=== PATIENT | female | born 1940 | race Caucasian/White ===

== ENCOUNTER 2019-06-02 14:01 | Inpatient (IN) | payer OTHER, MEDICARE ==
[~2019-06-02] VITALS: Ht 167.6 cm; Wt 118.0 kg
--- NOTE | 2019-06-02 14:21 | NUR ---
Bib by [facility] after home health nurse found patient lying in pool of urine in poorly kept house. Home health nurse requesting EPS case be filed as patient with known UTI by family did not fill rx ordered 30 days ago. EMS report fopul urine smell and patient unable to stand and A+Ox2-3. However afebrile, fsbs "fine" & vss. EMS started piv and started patient on 1L NS on slow bolus
[2019-06-02] MEDS ORDERED: SODIUM CHLORIDE FLUSH 10ML SYR IVF ONE (15:00)
[2019-06-02 15:10] LABS: BASOPHILS # (AUTO) 0.04 x10^3/uL (0-0.1); BASOPHILS % (AUTO) 0 % (0-1); EOSINOPHILS # (AUTO) 0.14 x10^3/uL (0-0.4); EOSINOPHILS % (AUTO) 1 % (1-7); LYMPHOCYTES # (AUTO) 2.44 x10^3/uL (1-3.4); LYMPHOCYTES % (AUTO) 20 % (22-44); MD NO; MEAN CORPUSCULAR HEMOGLOBIN 30.4 pg (27.0-34.8); MEAN CORPUSCULAR HGB CONC 32.1 g/dL (32.4-35.8); MEAN CORPUSCULAR VOLUME 94.6 fL (80-100); MEAN PLATELET VOLUME 10.1 fL (7.4-10.4); MONOCYTES # (AUTO) 0.79 x10^3/uL (0.2-0.8); MONOCYTES % (AUTO) 7 % (2-9); NEUTROPHILS # (AUTO) 8.81 x10^3/uL (1.8-6.8); NEUTROPHILS % (AUTO) 72 % (42-75); PLATELET COUNT 179 x10^3/uL (130-400); RED BLOOD COUNT 5.65 x10^6/uL (3.82-5.3); RED CELL DISTRIBUTION WIDTH 14.1 % (9.6-15.2)
[2019-06-02 15:20] LABS: ALANINE AMINOTRANSFERASE 18 U/L (12-78); ALBUMIN 2.9 g/dL (3.4-5.0); ANION GAP 7 mmol/L (5-15); CALCIUM 9.4 mg/dL (8.5-10.1); CHLORIDE 112 mmol/L (98-107); CREATININE 1.47 mg/dL (0.55-1.02)
[2019-06-02 15:23] LABS: ALKALINE PHOSPHATASE 171 U/L (45-117); BILIRUBIN,TOTAL 0.7 mg/dL (0.2-1.0)
[2019-06-02 15:50] LABS: MICROSCOPIC AUTO
[2019-06-02 15:54] LABS: CULTURE INDICATED? YES
[2019-06-02] MEDS ORDERED: CEFTRIAXONE PMX 1GM/50ML 50 ML ONE (16:15)
--- NOTE | 2019-06-02 16:24 | NUR ---
TASK RN: IV ANTIBIOTICS STARTED AND INFUSING W/O DIFFICULTYL. WARM BLANKET PROVIDED, CALL LIGHT W/I REACH.
[2019-06-02] MEDS ORDERED: CEFTRIAXONE PMX 1GM/50ML 50 ML IVPB ONE (16:30)
[2019-06-02] MEDS ORDERED: SODIUM CHLORIDE FLUSH 10ML SYR IVF PRN (16:30)
--- NOTE | 2019-06-02 16:45 | NUR ---
1l ns bolus started by EMS completed
--- NOTE | 2019-06-02 17:20 | NUR ---
Unable to complete med recc as patient unaware of meds/no family at bedside. Will attempt to contact family to weither obtain med info or pharmacy they use Adrianne SW also contacted about pending EPS report. Adrianne reports she has contacted home health RN who will be completing report
[2019-06-02] MEDS ORDERED: ACETAMINOPHEN 325 MG TABLET PO PRN (17:30)
[2019-06-02] MEDS ORDERED: BISACODYL 10 MG SUPP PR PRN (17:30)
--- NOTE | 2019-06-02 17:40 | NUR ---
b/p noted to be elevated. Lev WANG at bedside- to order prns
[2019-06-02 17:59] VITALS: BP 174/78
[2019-06-02] MEDS: SODIUM CHLORIDE 0.9% 1,000 ML IV SCH (18:16)
[2019-06-02] MEDS: HEPARIN 5,000 UNITS/ML, 1ML SQ SCH (18:16)
[2019-06-02] MEDS: hydrALAzine 20 MG/ML, 1ML IVPush PRN (18:16)
[2019-06-02 18:53] VITALS: BP 172/81
[2019-06-02] MEDS: ONDANSETRON ODT 4 MG PO PRN (19:00)
[2019-06-03 01:18] VITALS: BP 158/89
[2019-06-03] MEDS: HEPARIN 5,000 UNITS/ML, 1ML SQ SCH ×3 (02:27→17:20)
[2019-06-03] MEDS: SODIUM CHLORIDE 0.9% 1,000 ML IV SCH ×2 (04:34→17:20)
[2019-06-03 06:19] LABS: BASOPHILS # (AUTO) 0.06 x10^3/uL (0-0.1); BASOPHILS % (AUTO) 0 % (0-1); EOSINOPHILS # (AUTO) 0.01 x10^3/uL (0-0.4); EOSINOPHILS % (AUTO) 0 % (1-7); LYMPHOCYTES # (AUTO) 2.39 x10^3/uL (1-3.4); LYMPHOCYTES % (AUTO) 18 % (22-44); MD NO; MEAN CORPUSCULAR HEMOGLOBIN 30.2 pg (27.0-34.8); MEAN CORPUSCULAR HGB CONC 32.4 g/dL (32.4-35.8); MEAN CORPUSCULAR VOLUME 93.2 fL (80-100); MEAN PLATELET VOLUME 9.8 fL (7.4-10.4); MONOCYTES # (AUTO) 0.85 x10^3/uL (0.2-0.8); MONOCYTES % (AUTO) 6 % (2-9); NEUTROPHILS % (AUTO) 75 % (42-75); PLATELET COUNT 192 x10^3/uL (130-400); RED BLOOD COUNT 5.58 x10^6/uL (3.82-5.3)
[2019-06-03 06:29] LABS: ALBUMIN 3.1 g/dL (3.4-5.0); ANION GAP 8 mmol/L (5-15); CALCIUM 9.6 mg/dL (8.5-10.1); CHLORIDE 110 mmol/L (98-107)
[2019-06-03 06:32] LABS: ALANINE AMINOTRANSFERASE 24 U/L (12-78); ALKALINE PHOSPHATASE 179 U/L (45-117); BILIRUBIN,TOTAL 0.6 mg/dL (0.2-1.0); CREATININE 1.47 mg/dL (0.55-1.02); TOTAL PROTEIN 7.1 g/dL (6.4-8.2)
[2019-06-03 08:30] VITALS: BP 145/79
[2019-06-03] MEDS: SENNA/DOCUSATE TABLET PO SCH (09:43)
[2019-06-03] MEDS ORDERED: INSTRUCTION SEE COMMENTS XX PRN (10:30)
[2019-06-03] MEDS ORDERED: PHARMACY INSTRUCTION MC PRN (10:30)
[2019-06-03] MEDS ORDERED: DEXTROSE 50%, 50ML SYRINGE IVPush PRN (12:00)
[2019-06-03] MEDS ORDERED: GLUCAGON 1 MG IM PRN (12:00)
[2019-06-03] MEDS ORDERED: DEXTROSE 4 GM TAB.CHEW PO PRN (12:00)
[2019-06-03 14:13] VITALS: BP 149/81
--- NOTE | 2019-06-03 15:18 | NUR ---
REC CHOPPED/THIN; swallow precautions sheet posted at beside Addendum: 06/03/19 at [address] Amended: Links added.
[2019-06-03] MEDS ORDERED: HYDR-3341 PO (15:35)
[2019-06-03] MEDS ORDERED: MIRT15TA94 PO (15:35)
[2019-06-03] MEDS ORDERED: INSU100C5 SQ-INSULIN (15:35)
[2019-06-03] MEDS ORDERED: INSU100V8 SQ (15:35)
[2019-06-03] MEDS ORDERED: ATOR40TA78 PO (15:35)
[2019-06-03] MEDS ORDERED: ISOS30TA8 PO (15:35)
[2019-06-03] MEDS ORDERED: CARV3.122 PO (15:35)
[2019-06-03] MEDS ORDERED: GLIM4TAB4 PO (15:35)
[2019-06-03] MEDS ORDERED: AMIT25TA PO (15:35)
[2019-06-03] MEDS ORDERED: LEVO175T5 PO (15:35)
[2019-06-03] MEDS ORDERED: CHOL100015 PO (15:35)
[2019-06-03] MEDS: INSULIN LISPRO 100 UNITS/ML, PEN SQ-INSULIN SCH ×2 (16:00→21:00)
[2019-06-03] MEDS: CEFTRIAXONE PMX 1GM/50ML 50 ML IV SCH (17:19)
[2019-06-03 19:59] VITALS: BP 178/88
[2019-06-03 20:17] VITALS: BP 169/99
[2019-06-03] MEDS: hydrALAzine 20 MG/ML, 1ML IVPush PRN (20:20)
[2019-06-03 20:50] VITALS: BP 148/83
[2019-06-03] MEDS: SODIUM CHLORIDE FLUSH 10ML SYR IVF SCH (21:00)
[2019-06-03] MEDS: MELATONIN 3 MG TABLET PO SCH (21:00)
[2019-06-04 00:49] VITALS: BP 156/84
[2019-06-04] MEDS: HEPARIN 5,000 UNITS/ML, 1ML SQ SCH ×3 (01:30→16:40)
[2019-06-04] MEDS: SODIUM CHLORIDE 0.9% 1,000 ML IV SCH ×2 (04:47→14:32)
[2019-06-04] MEDS: INSULIN LISPRO 100 UNITS/ML, PEN SQ-INSULIN SCH ×4 (07:00→20:14)
[2019-06-04 07:12] LABS: BASOPHILS # (AUTO) 0.06 x10^3/uL (0-0.1); BASOPHILS % (AUTO) 1 % (0-1); EOSINOPHILS % (AUTO) 2 % (1-7); LYMPHOCYTES # (AUTO) 3.16 x10^3/uL (1-3.4); LYMPHOCYTES % (AUTO) 24 % (22-44); MD NO; MEAN CORPUSCULAR HEMOGLOBIN 30.6 pg (27.0-34.8); MEAN CORPUSCULAR HGB CONC 32.1 g/dL (32.4-35.8); MEAN CORPUSCULAR VOLUME 95.4 fL (80-100); MEAN PLATELET VOLUME 10.2 fL (7.4-10.4); MONOCYTES # (AUTO) 1.27 x10^3/uL (0.2-0.8); MONOCYTES % (AUTO) 10 % (2-9); NEUTROPHILS # (AUTO) 8.31 x10^3/uL (1.8-6.8); NEUTROPHILS % (AUTO) 64 % (42-75); PLATELET COUNT 179 x10^3/uL (130-400); RED BLOOD COUNT 5.31 x10^6/uL (3.82-5.3); RED CELL DISTRIBUTION WIDTH 14.1 % (9.6-15.2)
[2019-06-04 07:14] LABS: CHLORIDE 113 mmol/L (98-107)
[2019-06-04 07:21] LABS: ALANINE AMINOTRANSFERASE 24 U/L (12-78); ALBUMIN 2.8 g/dL (3.4-5.0); ALKALINE PHOSPHATASE 153 U/L (45-117); ANION GAP 9 mmol/L (5-15); BILIRUBIN,TOTAL 0.7 mg/dL (0.2-1.0); CALCIUM 9.5 mg/dL (8.5-10.1); CREATININE 1.36 mg/dL (0.55-1.02); TOTAL PROTEIN 6.4 g/dL (6.4-8.2)
[2019-06-04] MEDS: SODIUM CHLORIDE FLUSH 10ML SYR IVF SCH ×2 (08:12→20:14)
[2019-06-04] MEDS: SENNA/DOCUSATE TABLET PO SCH (08:13)
[2019-06-04 08:17] VITALS: BP 177/95
[2019-06-04] MEDS: hydrALAzine 20 MG/ML, 1ML IVPush PRN ×2 (09:11→18:10)
[2019-06-04 09:55] VITALS: BP 143/83
[2019-06-04 14:10] VITALS: BP 167/86
[2019-06-04] MEDS: CEFTRIAXONE PMX 1GM/50ML 50 ML IV SCH (16:40)
[2019-06-04 18:09] VITALS: BP 171/91
[2019-06-04] MEDS: QUETIAPINE 25MG TABLET PO PRN (18:11)
[2019-06-04 20:00] VITALS: BP 158/75
[2019-06-04] MEDS: MELATONIN 3 MG TABLET PO SCH (20:13)
[2019-06-05 00:06] VITALS: BP 155/85
[2019-06-05] MEDS: SODIUM CHLORIDE 0.9% 1,000 ML IV SCH ×3 (00:38→20:38)
[2019-06-05] MEDS: HEPARIN 5,000 UNITS/ML, 1ML SQ SCH ×3 (01:28→17:30)
[2019-06-05 06:01] LABS: BASOPHILS # (AUTO) 0.05 x10^3/uL (0-0.1); BASOPHILS % (AUTO) 0 % (0-1); EOSINOPHILS # (AUTO) 0.31 x10^3/uL (0-0.4); EOSINOPHILS % (AUTO) 2 % (1-7); LYMPHOCYTES # (AUTO) 2.89 x10^3/uL (1-3.4); LYMPHOCYTES % (AUTO) 23 % (22-44); MD NO; MEAN CORPUSCULAR HEMOGLOBIN 30.2 pg (27.0-34.8); MEAN CORPUSCULAR VOLUME 94.5 fL (80-100); MONOCYTES % (AUTO) 10 % (2-9); NEUTROPHILS # (AUTO) 8.24 x10^3/uL (1.8-6.8); NEUTROPHILS % (AUTO) 65 % (42-75); PLATELET COUNT 181 x10^3/uL (130-400); RED BLOOD COUNT 5.57 x10^6/uL (3.82-5.3); RED CELL DISTRIBUTION WIDTH 14.1 % (9.6-15.2)
[2019-06-05 06:03] LABS: ANION GAP 9 mmol/L (5-15); CALCIUM 9.6 mg/dL (8.5-10.1); CHLORIDE 111 mmol/L (98-107); CREATININE 1.33 mg/dL (0.55-1.02)
[2019-06-05] MEDS: INSULIN LISPRO 100 UNITS/ML, PEN SQ-INSULIN SCH ×4 (07:00→20:51)
[2019-06-05 08:00] VITALS: BP 154/78
[2019-06-05] MEDS: SENNA/DOCUSATE TABLET PO SCH (08:47)
[2019-06-05] MEDS: SODIUM CHLORIDE FLUSH 10ML SYR IVF SCH ×2 (08:51→20:32)
[2019-06-05 13:05] VITALS: BP 160/87
[2019-06-05] MEDS: CEFTRIAXONE PMX 1GM/50ML 50 ML IV SCH (16:44)
[2019-06-05 18:54] VITALS: BP 172/94
[2019-06-05] MEDS: MELATONIN 3 MG TABLET PO SCH (20:33)
[2019-06-05 23:56] VITALS: BP 174/97
[2019-06-06 00:05] VITALS: BP 167/87
[2019-06-06] MEDS: HEPARIN 5,000 UNITS/ML, 1ML SQ SCH ×4 (01:30→22:44)
[2019-06-06] MEDS: SODIUM CHLORIDE 0.9% 1,000 ML IV SCH ×2 (06:23→17:28)
[2019-06-06] MEDS: INSULIN LISPRO 100 UNITS/ML, PEN SQ-INSULIN SCH ×4 (07:00→22:36)
[2019-06-06] MEDS: SENNA/DOCUSATE TABLET PO SCH (07:55)
[2019-06-06 08:00] VITALS: BP 162/91
[2019-06-06] MEDS: SODIUM CHLORIDE FLUSH 10ML SYR IVF SCH ×2 (09:00→22:35)
[2019-06-06 10:14] LABS: BASOPHILS # (AUTO) 0.03 x10^3/uL (0-0.1); BASOPHILS % (AUTO) 0 % (0-1); EOSINOPHILS # (AUTO) 0.43 x10^3/uL (0-0.4); EOSINOPHILS % (AUTO) 4 % (1-7); LYMPHOCYTES # (AUTO) 2.38 x10^3/uL (1-3.4); LYMPHOCYTES % (AUTO) 22 % (22-44); MD NO; MEAN CORPUSCULAR HGB CONC 32.3 g/dL (32.4-35.8); MEAN PLATELET VOLUME 9.9 fL (7.4-10.4); MONOCYTES # (AUTO) 0.97 x10^3/uL (0.2-0.8); MONOCYTES % (AUTO) 9 % (2-9); NEUTROPHILS # (AUTO) 6.99 x10^3/uL (1.8-6.8); NEUTROPHILS % (AUTO) 65 % (42-75); PLATELET COUNT 178 x10^3/uL (130-400); RED BLOOD COUNT 5.53 x10^6/uL (3.82-5.3); RED CELL DISTRIBUTION WIDTH 14.2 % (9.6-15.2)
[2019-06-06 10:19] LABS: ANION GAP 6 mmol/L (5-15); CHLORIDE 112 mmol/L (98-107); CREATININE 1.17 mg/dL (0.55-1.02)
[2019-06-06 14:22] VITALS: BP 160/85
[2019-06-06] MEDS: CEFTRIAXONE PMX 1GM/50ML 50 ML IV SCH (17:28)
[2019-06-06] MEDS ORDERED: CEFD300C37 PO (18:32)
[2019-06-06 19:28] VITALS: BP 159/80
[2019-06-06] MEDS: CARVEDILOL 3.125 MG TABLET PO SCH (22:35)
[2019-06-06] MEDS: MIRTAZAPINE 15 MG TAB.RAPDIS PO SCH (22:35)
[2019-06-06] MEDS: ATORVASTATIN 40 MG TABLET PO SCH (22:35)
[2019-06-06] MEDS: MELATONIN 3 MG TABLET PO SCH (22:35)
[2019-06-06] MEDS: CEFDINIR 300 MG CAPSULE PO SCH (22:35)
[2019-06-06] MEDS: ISOSORBIDE MONONITRATE 20 MG TABLET PO SCH (22:36)
[2019-06-07 02:24] VITALS: BP 125/77
[2019-06-07] MEDS: LEVOTHYROXINE 175 MCG TABLET PO SCH (07:37)
[2019-06-07] MEDS: INSULIN LISPRO 100 UNITS/ML, PEN SQ-INSULIN SCH ×4 (07:37→20:15)
[2019-06-07] MEDS: CEFDINIR 300 MG CAPSULE PO SCH ×2 (07:37→20:09)
[2019-06-07] MEDS: SENNA/DOCUSATE TABLET PO SCH (07:37)
[2019-06-07] MEDS: ISOSORBIDE MONONITRATE 20 MG TABLET PO SCH ×2 (07:38→20:10)
[2019-06-07] MEDS: CARVEDILOL 3.125 MG TABLET PO SCH ×2 (07:38→20:12)
[2019-06-07] MEDS: SODIUM CHLORIDE FLUSH 10ML SYR IVF SCH ×2 (07:44→20:16)
[2019-06-07 07:47] VITALS: BP 177/98
[2019-06-07 09:21] VITALS: BP 160/85
[2019-06-07 10:45] LABS: FIO2 ROOM AIR %
[2019-06-07] MEDS: HEPARIN 5,000 UNITS/ML, 1ML SQ SCH ×2 (13:04→21:07)
[2019-06-07 16:00] VITALS: BP 180/86
[2019-06-07 19:16] VITALS: BP 182/85
[2019-06-07] MEDS: ATORVASTATIN 40 MG TABLET PO SCH (20:09)
[2019-06-07] MEDS: MIRTAZAPINE 15 MG TAB.RAPDIS PO SCH (20:10)
[2019-06-07] MEDS: MELATONIN 3 MG TABLET PO SCH (20:12)
[2019-06-08 01:55] VITALS: BP 148/82
[2019-06-08] MEDS: HEPARIN 5,000 UNITS/ML, 1ML SQ SCH ×3 (04:57→21:57)
[2019-06-08 07:54] LABS: FREE T4 (FREE THYROXINE) 1.02 ng/dL (0.76-1.46)
[2019-06-08] MEDS: ISOSORBIDE MONONITRATE 20 MG TABLET PO SCH ×2 (08:02→21:54)
[2019-06-08] MEDS: SENNA/DOCUSATE TABLET PO SCH (08:02)
[2019-06-08] MEDS: LEVOTHYROXINE 175 MCG TABLET PO SCH (08:03)
[2019-06-08] MEDS: CARVEDILOL 3.125 MG TABLET PO SCH ×2 (08:03→21:56)
[2019-06-08] MEDS: INSULIN LISPRO 100 UNITS/ML, PEN SQ-INSULIN SCH ×4 (08:04→21:54)
[2019-06-08] MEDS: SODIUM CHLORIDE FLUSH 10ML SYR IVF SCH ×2 (08:04→21:58)
[2019-06-08] MEDS: metFORMIN 850 MG TABLET PO SCH ×2 (08:08→16:47)
[2019-06-08 09:18] VITALS: BP 159/88
[2019-06-08] MEDS: QUETIAPINE 25MG TABLET PO PRN (11:39)
[2019-06-08 13:32] VITALS: BP 121/71
[2019-06-08 19:11] VITALS: BP 164/90
[2019-06-08] MEDS: ATORVASTATIN 40 MG TABLET PO SCH (21:55)
[2019-06-08] MEDS: MIRTAZAPINE 15 MG TAB.RAPDIS PO SCH (21:57)
[2019-06-08] MEDS: MELATONIN 3 MG TABLET PO SCH (21:57)
[2019-06-09 00:27] VITALS: BP 135/75
[2019-06-09] MEDS: ACETAMINOPHEN 325 MG TABLET PO PRN (05:59)
[2019-06-09] MEDS: QUETIAPINE 25MG TABLET PO PRN (05:59)
[2019-06-09] MEDS: HEPARIN 5,000 UNITS/ML, 1ML SQ SCH ×3 (06:09→21:22)
[2019-06-09 07:02] VITALS: BP 138/84
[2019-06-09] MEDS: metFORMIN 850 MG TABLET PO SCH ×2 (08:19→16:38)
[2019-06-09] MEDS: LEVOTHYROXINE 175 MCG TABLET PO SCH (08:19)
[2019-06-09] MEDS: ISOSORBIDE MONONITRATE 20 MG TABLET PO SCH ×2 (08:19→21:21)
[2019-06-09] MEDS: CARVEDILOL 3.125 MG TABLET PO SCH ×2 (08:20→21:23)
[2019-06-09] MEDS: SENNA/DOCUSATE TABLET PO SCH (08:20)
[2019-06-09] MEDS: INSULIN LISPRO 100 UNITS/ML, PEN SQ-INSULIN SCH ×4 (08:24→21:22)
[2019-06-09] MEDS: SODIUM CHLORIDE FLUSH 10ML SYR IVF SCH ×2 (08:30→21:22)
[2019-06-09] MEDS: RISPERIDONE 0.5 MG TABLET PO SCH ×2 (13:19→21:21)
[2019-06-09 16:40] VITALS: BP 135/85
[2019-06-09 19:40] VITALS: BP 168/91
[2019-06-09] MEDS: MELATONIN 3 MG TABLET PO SCH (21:23)
[2019-06-09] MEDS: MIRTAZAPINE 15 MG TAB.RAPDIS PO SCH (21:23)
[2019-06-09] MEDS: ATORVASTATIN 40 MG TABLET PO SCH (21:23)
[2019-06-10] MEDS: HEPARIN 5,000 UNITS/ML, 1ML SQ SCH ×3 (05:28→21:36)
[2019-06-10 05:31] VITALS: BP 113/71
[2019-06-10 07:38] VITALS: BP 166/83
[2019-06-10] MEDS: SODIUM CHLORIDE FLUSH 10ML SYR IVF SCH ×2 (09:00→21:00)
[2019-06-10 09:46] VITALS: BP 145/74
[2019-06-10] MEDS: ISOSORBIDE MONONITRATE 20 MG TABLET PO SCH ×2 (10:01→21:00)
[2019-06-10] MEDS: LEVOTHYROXINE 175 MCG TABLET PO SCH (10:01)
[2019-06-10] MEDS: CARVEDILOL 3.125 MG TABLET PO SCH ×2 (10:02→21:00)
[2019-06-10] MEDS: SENNA/DOCUSATE TABLET PO SCH (10:02)
[2019-06-10] MEDS: metFORMIN 850 MG TABLET PO SCH ×2 (10:02→20:00)
[2019-06-10] MEDS ORDERED: FLUOXETINE HCL 20 MG CAPSULE ONE (10:27)
[2019-06-10] MEDS: INSULIN LISPRO 100 UNITS/ML, PEN SQ-INSULIN SCH ×3 (11:00→21:00)
[2019-06-10 12:31] VITALS: BP 155/73
[2019-06-10 19:04] VITALS: BP 146/81
[2019-06-10] MEDS: RISPERIDONE 0.5 MG TABLET PO SCH (21:00)
[2019-06-10] MEDS: ATORVASTATIN 40 MG TABLET PO SCH (21:00)
[2019-06-10] MEDS: MIRTAZAPINE 15 MG TAB.RAPDIS PO SCH (21:00)
[2019-06-10] MEDS: MELATONIN 3 MG TABLET PO SCH (21:00)
[2019-06-11 00:22] VITALS: BP 172/82
[2019-06-11] MEDS: HEPARIN 5,000 UNITS/ML, 1ML SQ SCH ×3 (06:00→23:20)
[2019-06-11 06:54] VITALS: BP 172/90
[2019-06-11] MEDS: INSULIN LISPRO 100 UNITS/ML, PEN SQ-INSULIN SCH ×4 (07:00→20:09)
[2019-06-11] MEDS: SODIUM CHLORIDE 0.9% 1,000 ML IV SCH ×2 (07:30→16:05)
[2019-06-11] MEDS ORDERED: BISACODYL 10 MG SUPP PR ONE (07:30)
[2019-06-11] MEDS: LEVOTHYROXINE 175 MCG TABLET PO SCH (07:30)
[2019-06-11] MEDS: metFORMIN 850 MG TABLET PO SCH ×2 (08:00→16:06)
[2019-06-11] MEDS: SENNA/DOCUSATE TABLET PO SCH (08:05)
[2019-06-11] MEDS: CARVEDILOL 3.125 MG TABLET PO SCH ×2 (08:05→20:11)
[2019-06-11] MEDS: SODIUM CHLORIDE FLUSH 10ML SYR IVF SCH ×2 (08:05→20:20)
[2019-06-11] MEDS: ISOSORBIDE MONONITRATE 20 MG TABLET PO SCH ×2 (08:05→20:15)
[2019-06-11] MEDS ORDERED: HALOPERIDOL 5 MG/ML ONE (08:38)
[2019-06-11] MEDS ORDERED: HALOPERIDOL 5 MG/ML IM PRN (09:00)
[2019-06-11 12:39] VITALS: BP 177/89
[2019-06-11] MEDS: QUETIAPINE 25MG TABLET PO PRN (16:05)
[2019-06-11 19:01] VITALS: BP 170/91
[2019-06-11 19:23] VITALS: BP 159/90
[2019-06-11] MEDS: MIRTAZAPINE 15 MG TAB.RAPDIS PO SCH (20:16)
[2019-06-11] MEDS: RISPERIDONE 0.5 MG TABLET PO SCH (20:17)
[2019-06-11] MEDS: ATORVASTATIN 40 MG TABLET PO SCH (20:17)
[2019-06-11] MEDS: MELATONIN 3 MG TABLET PO SCH (20:17)
[2019-06-12 00:24] VITALS: BP 112/68
[2019-06-12] MEDS ORDERED: MAGNESIUM CITRATE 300ML ORAL SOL PO ONE (08:00)
[2019-06-12 08:13] VITALS: BP 149/82
[2019-06-12] MEDS ORDERED: BISACODYL 10 MG SUPP PR ONE (09:00)
[2019-06-12] MEDS: LEVOTHYROXINE 175 MCG TABLET PO SCH (09:04)
[2019-06-12] MEDS: INSULIN LISPRO 100 UNITS/ML, PEN SQ-INSULIN SCH ×4 (09:04→21:40)
[2019-06-12] MEDS: HEPARIN 5,000 UNITS/ML, 1ML SQ SCH ×3 (09:05→23:39)
[2019-06-12] MEDS: CARVEDILOL 3.125 MG TABLET PO SCH ×2 (09:05→21:35)
[2019-06-12] MEDS: ISOSORBIDE MONONITRATE 20 MG TABLET PO SCH ×2 (09:06→21:35)
[2019-06-12] MEDS: SENNA/DOCUSATE TABLET PO SCH (09:06)
[2019-06-12] MEDS: SODIUM CHLORIDE FLUSH 10ML SYR IVF SCH ×2 (09:07→21:40)
[2019-06-12] MEDS ORDERED: OMNIPAQUE 350 MG/ML, 100ML BOTTLE ONE (09:49)
[2019-06-12] MEDS: metFORMIN 850 MG TABLET PO SCH ×2 (09:50→16:40)
[2019-06-12 13:42] VITALS: BP 126/77
--- NOTE | 2019-06-12 16:33 | NUR ---
REC CHOPPED/NTL; ORANGE SHEET WITH DIET RECS AND SWALLOW STRATEGIES POSTED AT BEDSIDE. Addendum: 06/12/19 at 1634 by Mariella DE JESUS Amended: Links added.
[2019-06-12 16:49] VITALS: BP 143/80
[2019-06-12] MEDS: SODIUM CHLORIDE 0.9% 1,000 ML IV SCH (16:53)
[2019-06-12 19:46] VITALS: BP 149/111
[2019-06-12 20:18] VITALS: BP 139/84
[2019-06-12] MEDS: MELATONIN 3 MG TABLET PO SCH (21:34)
[2019-06-12] MEDS: ATORVASTATIN 40 MG TABLET PO SCH (21:34)
[2019-06-12] MEDS: MIRTAZAPINE 15 MG TAB.RAPDIS PO SCH (21:35)
[2019-06-12] MEDS: RISPERIDONE 0.5 MG TABLET PO SCH (21:35)
[2019-06-13 01:45] VITALS: BP 172/98
[2019-06-13 02:05] VITALS: BP 131/77
[2019-06-13] MEDS: ACETAMINOPHEN 325 MG TABLET PO PRN (04:11)
[2019-06-13] MEDS: metFORMIN 850 MG TABLET PO SCH ×3 (07:00→16:00)
[2019-06-13] MEDS: LEVOTHYROXINE 175 MCG TABLET PO SCH (07:30)
[2019-06-13 07:36] VITALS: BP 135/86
[2019-06-13] MEDS: SODIUM CHLORIDE FLUSH 10ML SYR IVF SCH ×3 (09:00→21:22)
[2019-06-13] MEDS: ISOSORBIDE MONONITRATE 20 MG TABLET PO SCH ×2 (09:00→21:24)
[2019-06-13] MEDS: SENNA/DOCUSATE TABLET PO SCH (09:00)
[2019-06-13] MEDS: CARVEDILOL 3.125 MG TABLET PO SCH ×2 (09:00→21:23)
[2019-06-13] MEDS: SODIUM CHLORIDE 0.9% 1,000 ML IV SCH (09:25)
[2019-06-13] MEDS: INSULIN LISPRO 100 UNITS/ML, PEN SQ-INSULIN SCH ×4 (09:26→21:23)
[2019-06-13 11:08] LABS: BASOPHILS % (AUTO) 1 % (0-1); EOSINOPHILS # (AUTO) 0.57 x10^3/uL (0-0.4); EOSINOPHILS % (AUTO) 5 % (1-7); LYMPHOCYTES # (AUTO) 2.82 x10^3/uL (1-3.4); LYMPHOCYTES % (AUTO) 25 % (22-44); MD NO; MEAN CORPUSCULAR VOLUME 93.7 fL (80-100); MEAN PLATELET VOLUME 9.8 fL (7.4-10.4); MONOCYTES # (AUTO) 0.78 x10^3/uL (0.2-0.8); MONOCYTES % (AUTO) 7 % (2-9); NEUTROPHILS % (AUTO) 62 % (42-75); PLATELET COUNT 208 x10^3/uL (130-400); RED CELL DISTRIBUTION WIDTH 14.2 % (9.6-15.2)
[2019-06-13 11:15] LABS: ALANINE AMINOTRANSFERASE 61 U/L (12-78); ALBUMIN 3.1 g/dL (3.4-5.0); ANION GAP 8 mmol/L (5-15); CALCIUM 9.6 mg/dL (8.5-10.1); CHLORIDE 108 mmol/L (98-107)
[2019-06-13 11:18] LABS: ALKALINE PHOSPHATASE 150 U/L (45-117); BILIRUBIN,TOTAL 0.6 mg/dL (0.2-1.0); CREATININE 1.67 mg/dL (0.55-1.02)
[2019-06-13 13:21] LABS: MICROSCOPIC NOT IND
[2019-06-13 13:34] LABS: CULTURE INDICATED? NO
[2019-06-13] MEDS: CEFTRIAXONE PMX 1GM/50ML 50 ML IV SCH (14:22)
[2019-06-13 19:19] VITALS: BP 153/89
[2019-06-13] MEDS: MIRTAZAPINE 15 MG TAB.RAPDIS PO SCH (21:23)
[2019-06-13] MEDS: ATORVASTATIN 40 MG TABLET PO SCH (21:23)
[2019-06-13] MEDS: RISPERIDONE 0.5 MG TABLET PO SCH (21:24)
[2019-06-13] MEDS: MELATONIN 3 MG TABLET PO SCH (21:24)
[2019-06-14 00:42] VITALS: BP 175/78
[2019-06-14 01:37] VITALS: BP 158/82
[2019-06-14] MEDS ORDERED: LORazepam 2 MG/ML, 1ML IVPush ONE (07:30)
[2019-06-14] MEDS ORDERED: SODIUM CHLORIDE 0.9% 1,000 ML IV SCH (07:30)
[2019-06-14] MEDS: LEVOTHYROXINE 175 MCG TABLET PO SCH (07:30)
[2019-06-14 08:10] VITALS: BP 156/80
[2019-06-14] MEDS: INSULIN LISPRO 100 UNITS/ML, PEN SQ-INSULIN SCH ×4 (08:18→21:00)
[2019-06-14] MEDS: CARVEDILOL 3.125 MG TABLET PO SCH ×2 (08:20→21:43)
[2019-06-14] MEDS: ISOSORBIDE MONONITRATE 20 MG TABLET PO SCH ×2 (08:22→21:42)
[2019-06-14] MEDS: SODIUM CHLORIDE FLUSH 10ML SYR IVF SCH ×2 (09:00→21:00)
[2019-06-14] MEDS: SENNA/DOCUSATE TABLET PO SCH (09:00)
[2019-06-14 10:37] LABS: BASOPHILS # (AUTO) 0.06 x10^3/uL (0-0.1); BASOPHILS % (AUTO) 1 % (0-1); EOSINOPHILS # (AUTO) 0.54 x10^3/uL (0-0.4); EOSINOPHILS % (AUTO) 5 % (1-7); LYMPHOCYTES # (AUTO) 2.83 x10^3/uL (1-3.4); LYMPHOCYTES % (AUTO) 24 % (22-44); MD NO; MEAN CORPUSCULAR HEMOGLOBIN 30.6 pg (27.0-34.8); MEAN CORPUSCULAR VOLUME 95.5 fL (80-100); MEAN PLATELET VOLUME 10.2 fL (7.4-10.4); MONOCYTES # (AUTO) 0.91 x10^3/uL (0.2-0.8); MONOCYTES % (AUTO) 8 % (2-9); NEUTROPHILS # (AUTO) 7.58 x10^3/uL (1.8-6.8); NEUTROPHILS % (AUTO) 64 % (42-75); PLATELET COUNT 211 x10^3/uL (130-400); RED BLOOD COUNT 5.35 x10^6/uL (3.82-5.3); RED CELL DISTRIBUTION WIDTH 14.4 % (9.6-15.2)
[2019-06-14 10:47] LABS: CHLORIDE 108 mmol/L (98-107)
[2019-06-14 10:48] LABS: ALANINE AMINOTRANSFERASE 45 U/L (12-78); ANION GAP 9 mmol/L (5-15); CALCIUM 9.4 mg/dL (8.5-10.1); CREATININE 1.44 mg/dL (0.55-1.02)
[2019-06-14 10:50] LABS: ALKALINE PHOSPHATASE 136 U/L (45-117); BILIRUBIN,TOTAL 0.7 mg/dL (0.2-1.0); TOTAL PROTEIN 6.5 g/dL (6.4-8.2)
[2019-06-14] MEDS ORDERED: BUPIVACAINE/PF-EPI 0.25% 1:200K ONE (13:09)
[2019-06-14] MEDS ORDERED: OXYTOCIN 10 UNITS/ML, 1ML ONE (13:10)
[2019-06-14] MEDS ORDERED: SILVER NITRATE STICK TP ONE (13:10)
[2019-06-14] MEDS ORDERED: MISOPROSTOL 200 MCG TABLET ONE (13:10)
[2019-06-14 13:40] VITALS: BP 169/83
[2019-06-14] MEDS ORDERED: MIDAZOLAM 1 MG/ML, 2ML ONE (14:25)
[2019-06-14] MEDS ORDERED: FENTANYL PF 100 MCG/2ML ONE (14:25)
[2019-06-14] MEDS ORDERED: PROPOFOL 10 MG/ML, 20ML ONE (14:30)
[2019-06-14] MEDS ORDERED: PHENYLEPHRINE 10 MG/ML ONE (14:30)
[2019-06-14] MEDS ORDERED: KETAMINE 10 MG/ML, 20ML ONE (14:30)
[2019-06-14] MEDS ORDERED: MEPERIDINE/PF 25MG/ML,1ML IVPush PRN (15:30)
[2019-06-14] MEDS ORDERED: hydrALAzine 20 MG/ML, 1ML IV PRN (15:30)
[2019-06-14] MEDS ORDERED: FENTANYL PF 100 MCG/2ML IV PRN (15:30)
[2019-06-14] MEDS ORDERED: ONDANSETRON 2MG/ML, 2ML IV PRN (15:30)
[2019-06-14] MEDS: CEFTRIAXONE PMX 1GM/50ML 50 ML IV SCH (16:35)
[2019-06-14 18:52] VITALS: BP 164/87
[2019-06-14] MEDS: ATORVASTATIN 40 MG TABLET PO SCH (21:43)
[2019-06-14] MEDS: MIRTAZAPINE 15 MG TAB.RAPDIS PO SCH (21:43)
[2019-06-14] MEDS: RISPERIDONE 0.5 MG TABLET PO SCH (21:44)
[2019-06-14] MEDS: MELATONIN 3 MG TABLET PO SCH (21:44)
[2019-06-15 01:10] VITALS: BP 145/82
[2019-06-15 06:06] LABS: BASOPHILS # (AUTO) 0.07 x10^3/uL (0-0.1); BASOPHILS % (AUTO) 1 % (0-1); EOSINOPHILS # (AUTO) 0.61 x10^3/uL (0-0.4); EOSINOPHILS % (AUTO) 5 % (1-7); LYMPHOCYTES # (AUTO) 2.89 x10^3/uL (1-3.4); LYMPHOCYTES % (AUTO) 22 % (22-44); MD NO; MEAN CORPUSCULAR HEMOGLOBIN 29.8 pg (27.0-34.8); MEAN CORPUSCULAR HGB CONC 32.1 g/dL (32.4-35.8); MEAN PLATELET VOLUME 10.5 fL (7.4-10.4); MONOCYTES # (AUTO) 1.01 x10^3/uL (0.2-0.8); MONOCYTES % (AUTO) 8 % (2-9); NEUTROPHILS # (AUTO) 8.65 x10^3/uL (1.8-6.8); NEUTROPHILS % (AUTO) 65 % (42-75); PLATELET COUNT 200 x10^3/uL (130-400); RED BLOOD COUNT 5.71 x10^6/uL (3.82-5.3); RED CELL DISTRIBUTION WIDTH 14.6 % (9.6-15.2)
[2019-06-15 06:13] LABS: CHLORIDE 110 mmol/L (98-107)
[2019-06-15 06:18] LABS: ANION GAP 12 mmol/L (5-15); CALCIUM 9.9 mg/dL (8.5-10.1); CREATININE 1.45 mg/dL (0.55-1.02)
[2019-06-15 07:43] VITALS: BP 143/84
[2019-06-15] MEDS: ISOSORBIDE MONONITRATE 20 MG TABLET PO SCH ×2 (08:16→20:40)
[2019-06-15] MEDS: CARVEDILOL 6.25 MG TABLET PO SCH ×2 (08:17→20:40)
[2019-06-15] MEDS: SENNA/DOCUSATE TABLET PO SCH (08:17)
[2019-06-15] MEDS: SODIUM CHLORIDE FLUSH 10ML SYR IVF SCH ×2 (08:18→20:41)
[2019-06-15] MEDS: LEVOTHYROXINE 175 MCG TABLET PO SCH (08:18)
[2019-06-15] MEDS: INSULIN LISPRO 100 UNITS/ML, PEN SQ-INSULIN SCH ×4 (08:23→20:41)
[2019-06-15 13:25] VITALS: BP 117/77
--- NOTE | 2019-06-15 14:14 | NUR ---
PUREE/ NTL * UPRIGHT AT 90 FOR ALL PO INTAKE * SMALL BITES/SIPS * MEDICATIONS TOLERATED * ONLY WHEN AWAKE AND ALERT. Addendum: 06/15/19 at [address] Amended: Links added.
[2019-06-15] MEDS: CEFTRIAXONE PMX 1GM/50ML 50 ML IV SCH (15:12)
[2019-06-15 19:35] VITALS: BP 170/80
[2019-06-15] MEDS: ATORVASTATIN 40 MG TABLET PO SCH (20:39)
[2019-06-15] MEDS: MIRTAZAPINE 15 MG TAB.RAPDIS PO SCH (20:39)
[2019-06-15] MEDS: MELATONIN 3 MG TABLET PO SCH (20:39)
[2019-06-15] MEDS: RISPERIDONE 0.5 MG TABLET PO SCH (20:40)
[2019-06-16 01:28] VITALS: BP 122/64
[2019-06-16 06:08] LABS: ANION GAP 8 mmol/L (5-15); CALCIUM 9.4 mg/dL (8.5-10.1); CHLORIDE 112 mmol/L (98-107); CREATININE 1.51 mg/dL (0.55-1.02)
[2019-06-16] MEDS: INSULIN LISPRO 100 UNITS/ML, PEN SQ-INSULIN SCH ×4 (07:00→21:00)
[2019-06-16 07:27] LABS: BASOPHILS % (AUTO) 1 % (0-1); EOSINOPHILS # (AUTO) 0.57 x10^3/uL (0-0.4); EOSINOPHILS % (AUTO) 5 % (1-7); LYMPHOCYTES # (AUTO) 3.28 x10^3/uL (1-3.4); LYMPHOCYTES % (AUTO) 29 % (22-44); MD NO; MEAN CORPUSCULAR HEMOGLOBIN 30.4 pg (27.0-34.8); MEAN CORPUSCULAR HGB CONC 32.3 g/dL (32.4-35.8); MEAN PLATELET VOLUME 9.9 fL (7.4-10.4); MONOCYTES # (AUTO) 1.16 x10^3/uL (0.2-0.8); MONOCYTES % (AUTO) 10 % (2-9); NEUTROPHILS # (AUTO) 6.41 x10^3/uL (1.8-6.8); NEUTROPHILS % (AUTO) 56 % (42-75); PLATELET COUNT 197 x10^3/uL (130-400); RED BLOOD COUNT 5.09 x10^6/uL (3.82-5.3); RED CELL DISTRIBUTION WIDTH 14.8 % (9.6-15.2)
[2019-06-16 07:58] VITALS: BP 145/83
[2019-06-16] MEDS: ISOSORBIDE MONONITRATE 20 MG TABLET PO SCH ×2 (08:06→20:48)
[2019-06-16] MEDS: SENNA/DOCUSATE TABLET PO SCH (08:06)
[2019-06-16] MEDS: SODIUM CHLORIDE FLUSH 10ML SYR IVF SCH ×2 (08:07→20:47)
[2019-06-16] MEDS: LEVOTHYROXINE 175 MCG TABLET PO SCH (08:07)
[2019-06-16] MEDS: CARVEDILOL 6.25 MG TABLET PO SCH ×2 (08:07→20:49)
[2019-06-16 13:25] VITALS: BP 144/79
[2019-06-16 19:24] VITALS: BP 143/67
[2019-06-16] MEDS: MELATONIN 3 MG TABLET PO SCH (20:49)
[2019-06-16] MEDS: RISPERIDONE 0.5 MG TABLET PO SCH (20:49)
[2019-06-16] MEDS: ATORVASTATIN 40 MG TABLET PO SCH (20:49)
[2019-06-16] MEDS: MIRTAZAPINE 15 MG TAB.RAPDIS PO SCH (20:49)
[2019-06-17 02:31] VITALS: BP 139/68
[2019-06-17 06:15] LABS: BASOPHILS # (AUTO) 0.08 x10^3/uL (0-0.1); BASOPHILS % (AUTO) 1 % (0-1); EOSINOPHILS # (AUTO) 0.57 x10^3/uL (0-0.4); EOSINOPHILS % (AUTO) 6 % (1-7); LYMPHOCYTES # (AUTO) 2.63 x10^3/uL (1-3.4); LYMPHOCYTES % (AUTO) 28 % (22-44); MD NO; MEAN CORPUSCULAR HEMOGLOBIN 30.3 pg (27.0-34.8); MEAN CORPUSCULAR HGB CONC 32.2 g/dL (32.4-35.8); MEAN CORPUSCULAR VOLUME 94.1 fL (80-100); MEAN PLATELET VOLUME 10.3 fL (7.4-10.4); MONOCYTES # (AUTO) 0.88 x10^3/uL (0.2-0.8); MONOCYTES % (AUTO) 10 % (2-9); NEUTROPHILS # (AUTO) 5.08 x10^3/uL (1.8-6.8); NEUTROPHILS % (AUTO) 55 % (42-75); PLATELET COUNT 182 x10^3/uL (130-400); RED BLOOD COUNT 4.71 x10^6/uL (3.82-5.3); RED CELL DISTRIBUTION WIDTH 14.7 % (9.6-15.2)
[2019-06-17 07:18] LABS: ANION GAP 8 mmol/L (5-15); CALCIUM 9.5 mg/dL (8.5-10.1); CHLORIDE 113 mmol/L (98-107)
[2019-06-17 07:20] LABS: CREATININE 1.38 mg/dL (0.55-1.02)
[2019-06-17 07:40] VITALS: BP 121/75
[2019-06-17] MEDS: CARVEDILOL 6.25 MG TABLET PO SCH ×2 (08:16→21:38)
[2019-06-17] MEDS: SENNA/DOCUSATE TABLET PO SCH (08:16)
[2019-06-17] MEDS: LEVOTHYROXINE 175 MCG TABLET PO SCH (08:16)
[2019-06-17] MEDS: INSULIN LISPRO 100 UNITS/ML, PEN SQ-INSULIN SCH ×4 (08:16→21:00)
[2019-06-17] MEDS: SODIUM CHLORIDE FLUSH 10ML SYR IVF SCH ×2 (08:17→21:00)
[2019-06-17] MEDS: ISOSORBIDE MONONITRATE 20 MG TABLET PO SCH ×2 (08:17→21:00)
[2019-06-17 13:20] VITALS: BP 149/81
[2019-06-17] MEDS: POLYETHYLENE GLYCOL 17 GM PACKET PO PRN (16:08)
[2019-06-17 18:58] VITALS: BP 154/63
[2019-06-17] MEDS: MIRTAZAPINE 15 MG TAB.RAPDIS PO SCH (21:00)
[2019-06-17] MEDS: RISPERIDONE 0.5 MG TABLET PO SCH (21:38)
[2019-06-17] MEDS: ATORVASTATIN 40 MG TABLET PO SCH (21:38)
[2019-06-17] MEDS: MELATONIN 3 MG TABLET PO SCH (21:38)
[2019-06-18 01:12] VITALS: BP 139/68
[2019-06-18 06:57] VITALS: BP 141/72
[2019-06-18] MEDS: INSULIN LISPRO 100 UNITS/ML, PEN SQ-INSULIN SCH ×4 (07:33→21:15)
[2019-06-18] MEDS: SENNA/DOCUSATE TABLET PO SCH (08:43)
[2019-06-18] MEDS: LEVOTHYROXINE 175 MCG TABLET PO SCH (08:43)
[2019-06-18] MEDS: CARVEDILOL 6.25 MG TABLET PO SCH ×2 (08:43→20:55)
[2019-06-18] MEDS: ISOSORBIDE MONONITRATE 20 MG TABLET PO SCH ×2 (08:46→20:55)
[2019-06-18] MEDS: SODIUM CHLORIDE FLUSH 10ML SYR IVF SCH ×2 (08:46→20:54)
[2019-06-18] MEDS: OXYcodone 5 MG/5 ML ORAL.SOL UDC PO PRN (11:18)
[2019-06-18 12:51] VITALS: BP 145/83
[2019-06-18 18:48] VITALS: BP 152/73
[2019-06-18] MEDS: MELATONIN 3 MG TABLET PO SCH (20:55)
[2019-06-18] MEDS: ATORVASTATIN 40 MG TABLET PO SCH (20:56)
[2019-06-18] MEDS: RISPERIDONE 0.5 MG TABLET PO SCH (20:56)
[2019-06-18] MEDS: MIRTAZAPINE 15 MG TAB.RAPDIS PO SCH (20:56)
[2019-06-19] VITALS: BP 147/62
[2019-06-19 04:59] LABS: BASOPHILS # (AUTO) 0.08 x10^3/uL (0-0.1); BASOPHILS % (AUTO) 1 % (0-1); EOSINOPHILS # (AUTO) 0.51 x10^3/uL (0-0.4); EOSINOPHILS % (AUTO) 5 % (1-7); LYMPHOCYTES # (AUTO) 3.73 x10^3/uL (1-3.4); LYMPHOCYTES % (AUTO) 34 % (22-44); MD NO; MEAN CORPUSCULAR HEMOGLOBIN 30.5 pg (27.0-34.8); MEAN CORPUSCULAR HGB CONC 32.5 g/dL (32.4-35.8); MEAN CORPUSCULAR VOLUME 93.8 fL (80-100); MEAN PLATELET VOLUME 9.7 fL (7.4-10.4); MONOCYTES # (AUTO) 1.34 x10^3/uL (0.2-0.8); MONOCYTES % (AUTO) 12 % (2-9); NEUTROPHILS # (AUTO) 5.47 x10^3/uL (1.8-6.8); NEUTROPHILS % (AUTO) 49 % (42-75); PLATELET COUNT 176 x10^3/uL (130-400); RED BLOOD COUNT 5.19 x10^6/uL (3.82-5.3); RED CELL DISTRIBUTION WIDTH 14.3 % (9.6-15.2)
[2019-06-19 07:00] VITALS: BP 136/71
[2019-06-19] MEDS: INSULIN LISPRO 100 UNITS/ML, PEN SQ-INSULIN SCH ×4 (07:00→22:13)
[2019-06-19 07:15] LABS: ANION GAP 6 mmol/L (5-15); CHLORIDE 108 mmol/L (98-107); CREATININE 1.41 mg/dL (0.55-1.02)
[2019-06-19] MEDS: LEVOTHYROXINE 175 MCG TABLET PO SCH (07:49)
[2019-06-19] MEDS: SODIUM CHLORIDE FLUSH 10ML SYR IVF SCH ×2 (09:00→21:00)
[2019-06-19] MEDS: SENNA/DOCUSATE TABLET PO SCH (11:59)
[2019-06-19] MEDS: CARVEDILOL 6.25 MG TABLET PO SCH ×2 (11:59→22:13)
[2019-06-19] MEDS: ISOSORBIDE MONONITRATE 20 MG TABLET PO SCH ×2 (12:00→22:14)
[2019-06-19 13:00] VITALS: BP 112/62
[2019-06-19 17:00] VITALS: BP 120/73
[2019-06-19] MEDS: MELATONIN 3 MG TABLET PO SCH (22:14)
[2019-06-19] MEDS: ATORVASTATIN 40 MG TABLET PO SCH (22:14)
[2019-06-19] MEDS: RISPERIDONE 0.5 MG TABLET PO SCH (22:14)
[2019-06-19 22:17] VITALS: BP 184/90
[2019-06-19] MEDS: MIRTAZAPINE 15 MG TAB.RAPDIS PO SCH (22:21)
[2019-06-20 03:13] VITALS: BP 138/58
[2019-06-20 06:37] VITALS: BP 132/62
[2019-06-20] MEDS: SENNA/DOCUSATE TABLET PO SCH (07:42)
[2019-06-20] MEDS: ISOSORBIDE MONONITRATE 20 MG TABLET PO SCH ×2 (07:42→21:00)
[2019-06-20] MEDS: LEVOTHYROXINE 175 MCG TABLET PO SCH (07:43)
[2019-06-20] MEDS: CARVEDILOL 6.25 MG TABLET PO SCH ×2 (07:43→21:00)
[2019-06-20] MEDS: SODIUM CHLORIDE FLUSH 10ML SYR IVF SCH ×2 (07:43→21:00)
[2019-06-20] MEDS: INSULIN LISPRO 100 UNITS/ML, PEN SQ-INSULIN SCH ×4 (07:44→20:45)
[2019-06-20 12:56] VITALS: BP 133/61
[2019-06-20 20:19] VITALS: BP 153/84
[2019-06-20] MEDS: MIRTAZAPINE 15 MG TAB.RAPDIS PO SCH (21:00)
[2019-06-20] MEDS: ATORVASTATIN 40 MG TABLET PO SCH (21:00)
[2019-06-20] MEDS: RISPERIDONE 0.5 MG TABLET PO SCH (21:00)
[2019-06-20] MEDS: MELATONIN 3 MG TABLET PO SCH (21:00)
[2019-06-21] MEDS: QUETIAPINE 25MG TABLET PO PRN ×2 (01:31→15:51)
[2019-06-21 02:03] VITALS: BP 122/61
[2019-06-21] MEDS: OXYcodone 5 MG/5 ML ORAL.SOL UDC PO PRN ×2 (05:11→19:20)
[2019-06-21 05:31] VITALS: BP 148/67
[2019-06-21 06:35] VITALS: BP 137/82
[2019-06-21] MEDS: INSULIN LISPRO 100 UNITS/ML, PEN SQ-INSULIN SCH ×4 (09:00→19:29)
[2019-06-21] MEDS: SODIUM CHLORIDE FLUSH 10ML SYR IVF SCH ×2 (09:00→19:02)
[2019-06-21] MEDS: ISOSORBIDE MONONITRATE 20 MG TABLET PO SCH ×2 (11:27→19:20)
[2019-06-21] MEDS: SENNA/DOCUSATE TABLET PO SCH (11:28)
[2019-06-21] MEDS: LEVOTHYROXINE 175 MCG TABLET PO SCH (11:29)
[2019-06-21] MEDS: CARVEDILOL 6.25 MG TABLET PO SCH ×2 (11:29→19:00)
[2019-06-21 12:27] VITALS: BP 135/80
[2019-06-21] MEDS: MELATONIN 3 MG TABLET PO SCH (19:21)
[2019-06-21] MEDS: ATORVASTATIN 40 MG TABLET PO SCH (19:21)
[2019-06-21] MEDS: MIRTAZAPINE 15 MG TAB.RAPDIS PO SCH (19:21)
[2019-06-21] MEDS: RISPERIDONE 0.5 MG TABLET PO SCH (19:21)
[2019-06-21 19:29] VITALS: BP 133/72
[2019-06-21 23:49] VITALS: BP 129/68
[2019-06-22] MEDS: OXYcodone 5 MG/5 ML ORAL.SOL UDC PO PRN (01:46)
[2019-06-22 05:21] LABS: BASOPHILS # (AUTO) 0.11 x10^3/uL (0-0.1); BASOPHILS % (AUTO) 1 % (0-1); EOSINOPHILS # (AUTO) 0.69 x10^3/uL (0-0.4); EOSINOPHILS % (AUTO) 7 % (1-7); LYMPHOCYTES # (AUTO) 4.01 x10^3/uL (1-3.4); LYMPHOCYTES % (AUTO) 39 % (22-44); MD NO; MEAN CORPUSCULAR HEMOGLOBIN 30.3 pg (27.0-34.8); MEAN CORPUSCULAR HGB CONC 32.4 g/dL (32.4-35.8); MEAN CORPUSCULAR VOLUME 93.5 fL (80-100); MEAN PLATELET VOLUME 11.4 fL (7.4-10.4); MONOCYTES % (AUTO) 12 % (2-9); NEUTROPHILS # (AUTO) 4.25 x10^3/uL (1.8-6.8); NEUTROPHILS % (AUTO) 41 % (42-75); PLATELET COUNT 175 x10^3/uL (130-400); RED BLOOD COUNT 5.33 x10^6/uL (3.82-5.3)
[2019-06-22 05:30] LABS: ANION GAP 7 mmol/L (5-15); CALCIUM 9.8 mg/dL (8.5-10.1); CHLORIDE 107 mmol/L (98-107); CREATININE 1.55 mg/dL (0.55-1.02)
[2019-06-22 06:39] VITALS: BP 142/75
[2019-06-22] MEDS: SODIUM CHLORIDE FLUSH 10ML SYR IVF SCH ×2 (09:00→21:00)
[2019-06-22] MEDS: INSULIN LISPRO 100 UNITS/ML, PEN SQ-INSULIN SCH ×4 (11:00→22:23)
[2019-06-22 12:27] VITALS: BP 152/66
[2019-06-22] MEDS: SENNA/DOCUSATE TABLET PO SCH (13:02)
[2019-06-22] MEDS: ISOSORBIDE MONONITRATE 20 MG TABLET PO SCH ×2 (13:03→21:50)
[2019-06-22] MEDS: CARVEDILOL 6.25 MG TABLET PO SCH ×2 (13:04→21:51)
[2019-06-22] MEDS: LEVOTHYROXINE 175 MCG TABLET PO SCH (13:11)
[2019-06-22 18:43] VITALS: BP 152/82
[2019-06-22] MEDS: MELATONIN 3 MG TABLET PO SCH (21:48)
[2019-06-22] MEDS: MIRTAZAPINE 15 MG TAB.RAPDIS PO SCH (21:48)
[2019-06-22] MEDS: RISPERIDONE 0.5 MG TABLET PO SCH (21:50)
[2019-06-22] MEDS: ATORVASTATIN 40 MG TABLET PO SCH (21:51)
[2019-06-23 00:04] VITALS: BP 133/64
[2019-06-23 06:33] VITALS: BP 145/63
[2019-06-23] MEDS: INSULIN LISPRO 100 UNITS/ML, PEN SQ-INSULIN SCH ×4 (07:53→20:08)
[2019-06-23] MEDS: SODIUM CHLORIDE FLUSH 10ML SYR IVF SCH ×2 (09:00→20:12)
[2019-06-23] MEDS: SENNA/DOCUSATE TABLET PO SCH (11:18)
[2019-06-23] MEDS: ISOSORBIDE MONONITRATE 20 MG TABLET PO SCH ×2 (11:19→20:11)
[2019-06-23] MEDS: CARVEDILOL 6.25 MG TABLET PO SCH ×2 (11:19→20:11)
[2019-06-23] MEDS: LEVOTHYROXINE 175 MCG TABLET PO SCH (11:21)
[2019-06-23 12:23] VITALS: BP 126/73
[2019-06-23] MEDS: QUETIAPINE 25MG TABLET PO PRN (12:39)
[2019-06-23] MEDS: HALOPERIDOL 5 MG/ML IM PRN (13:06)
[2019-06-23 19:44] VITALS: BP 164/93
[2019-06-23] MEDS: MELATONIN 3 MG TABLET PO SCH (20:04)
[2019-06-23] MEDS: MIRTAZAPINE 15 MG TAB.RAPDIS PO SCH (20:05)
[2019-06-23] MEDS: RISPERIDONE 0.5 MG TABLET PO SCH (20:05)
[2019-06-23] MEDS: ATORVASTATIN 40 MG TABLET PO SCH (20:13)
[2019-06-24 01:08] VITALS: BP 154/79
[2019-06-24 06:49] VITALS: BP 129/80
[2019-06-24] MEDS: CARVEDILOL 6.25 MG TABLET PO SCH ×2 (08:14→21:37)
[2019-06-24] MEDS: LEVOTHYROXINE 175 MCG TABLET PO SCH (08:14)
[2019-06-24] MEDS: ISOSORBIDE MONONITRATE 20 MG TABLET PO SCH ×2 (08:14→21:38)
[2019-06-24] MEDS: SENNA/DOCUSATE TABLET PO SCH (08:14)
[2019-06-24] MEDS: SODIUM CHLORIDE FLUSH 10ML SYR IVF SCH ×2 (08:15→21:00)
[2019-06-24] MEDS: INSULIN LISPRO 100 UNITS/ML, PEN SQ-INSULIN SCH ×4 (08:20→21:33)
[2019-06-24 12:19] VITALS: BP 122/72
[2019-06-24 18:41] VITALS: BP 157/87
[2019-06-24] MEDS: MELATONIN 3 MG TABLET PO SCH (21:34)
[2019-06-24] MEDS: RISPERIDONE 0.5 MG TABLET PO SCH (21:35)
[2019-06-24] MEDS: ATORVASTATIN 40 MG TABLET PO SCH (21:37)
[2019-06-24] MEDS: MIRTAZAPINE 15 MG TAB.RAPDIS PO SCH (21:38)
[2019-06-25 00:31] VITALS: BP 140/83
[2019-06-25 06:51] VITALS: BP 151/82
[2019-06-25] MEDS: INSULIN LISPRO 100 UNITS/ML, PEN SQ-INSULIN SCH ×4 (07:31→20:57)
[2019-06-25] MEDS: ISOSORBIDE MONONITRATE 20 MG TABLET PO SCH ×2 (10:45→20:34)
[2019-06-25] MEDS: LEVOTHYROXINE 175 MCG TABLET PO SCH (10:45)
[2019-06-25] MEDS: SENNA/DOCUSATE TABLET PO SCH (10:46)
[2019-06-25] MEDS: CARVEDILOL 6.25 MG TABLET PO SCH ×2 (10:51→20:34)
[2019-06-25] MEDS: SODIUM CHLORIDE FLUSH 10ML SYR IVF SCH ×2 (10:51→20:35)
[2019-06-25 12:21] VITALS: BP 116/73
[2019-06-25 19:47] VITALS: BP 132/73
[2019-06-25] MEDS: MIRTAZAPINE 15 MG TAB.RAPDIS PO SCH (20:34)
[2019-06-25] MEDS: RISPERIDONE 0.5 MG TABLET PO SCH (20:34)
[2019-06-25] MEDS: MELATONIN 3 MG TABLET PO SCH (20:34)
[2019-06-25] MEDS: ATORVASTATIN 40 MG TABLET PO SCH (20:35)
[2019-06-25] MEDS: QUETIAPINE 25MG TABLET PO PRN (20:35)
[2019-06-25] MEDS: POLYETHYLENE GLYCOL 17 GM PACKET PO PRN (20:45)
[2019-06-26 01:14] VITALS: BP 132/74
[2019-06-26] MEDS: QUETIAPINE 25MG TABLET PO PRN ×2 (07:28→21:39)
[2019-06-26] MEDS: CARVEDILOL 6.25 MG TABLET PO SCH ×2 (07:29→21:40)
[2019-06-26] MEDS: ISOSORBIDE MONONITRATE 20 MG TABLET PO SCH ×2 (07:29→21:39)
[2019-06-26] MEDS: SENNA/DOCUSATE TABLET PO SCH (07:30)
[2019-06-26] MEDS: LEVOTHYROXINE 175 MCG TABLET PO SCH (07:30)
[2019-06-26] MEDS: SODIUM CHLORIDE FLUSH 10ML SYR IVF SCH ×2 (07:31→21:40)
[2019-06-26] MEDS: INSULIN LISPRO 100 UNITS/ML, PEN SQ-INSULIN SCH ×4 (07:31→22:22)
[2019-06-26 08:21] VITALS: BP 112/68
[2019-06-26] MEDS: HALOPERIDOL 5 MG/ML IM PRN ×2 (11:00→17:56)
[2019-06-26 13:13] VITALS: BP 114/69
[2019-06-26 20:51] VITALS: BP 115/66
[2019-06-26] MEDS: MIRTAZAPINE 15 MG TAB.RAPDIS PO SCH (21:39)
[2019-06-26] MEDS: RISPERIDONE 0.5 MG TABLET PO SCH (21:39)
[2019-06-26] MEDS: DIVALPROEX 125 MG CAP.SPRINK PO SCH (21:40)
[2019-06-26] MEDS: MELATONIN 3 MG TABLET PO SCH (21:40)
[2019-06-26] MEDS: ATORVASTATIN 40 MG TABLET PO SCH (21:40)
[2019-06-26] MEDS: INSULIN GLARGINE 100 UNITS/ML, PEN SQ-INSULIN SCH (22:23)
[2019-06-27 01:47] VITALS: BP 117/70
[2019-06-27 05:35] LABS: BASOPHILS # (AUTO) 0.08 x10^3/uL (0-0.1); BASOPHILS % (AUTO) 1 % (0-1); EOSINOPHILS # (AUTO) 0.54 x10^3/uL (0-0.4); EOSINOPHILS % (AUTO) 5 % (1-7); LYMPHOCYTES # (AUTO) 3.29 x10^3/uL (1-3.4); LYMPHOCYTES % (AUTO) 30 % (22-44); MD NO; MEAN CORPUSCULAR HEMOGLOBIN 30.6 pg (27.0-34.8); MEAN CORPUSCULAR VOLUME 95.6 fL (80-100); MEAN PLATELET VOLUME 12.1 fL (7.4-10.4); MONOCYTES # (AUTO) 1.37 x10^3/uL (0.2-0.8); MONOCYTES % (AUTO) 13 % (2-9); NEUTROPHILS # (AUTO) 5.59 x10^3/uL (1.8-6.8); NEUTROPHILS % (AUTO) 51 % (42-75); PLATELET COUNT 169 x10^3/uL (130-400); RED BLOOD COUNT 5.32 x10^6/uL (3.82-5.3); RED CELL DISTRIBUTION WIDTH 15.5 % (9.6-15.2)
[2019-06-27 05:40] LABS: ANION GAP 6 mmol/L (5-15); CALCIUM 9.6 mg/dL (8.5-10.1); CHLORIDE 112 mmol/L (98-107); CREATININE 1.57 mg/dL (0.55-1.02)
[2019-06-27 06:43] VITALS: BP 112/72
[2019-06-27] MEDS: INSULIN LISPRO 100 UNITS/ML, PEN SQ-INSULIN SCH ×4 (07:41→21:37)
[2019-06-27] MEDS: ISOSORBIDE MONONITRATE 20 MG TABLET PO SCH ×2 (07:42→21:36)
[2019-06-27] MEDS: DIVALPROEX 125 MG CAP.SPRINK PO SCH ×2 (07:43→21:35)
[2019-06-27] MEDS: LEVOTHYROXINE 175 MCG TABLET PO SCH (07:43)
[2019-06-27] MEDS: SODIUM CHLORIDE FLUSH 10ML SYR IVF SCH ×2 (07:43→21:00)
[2019-06-27] MEDS: CARVEDILOL 6.25 MG TABLET PO SCH ×2 (07:43→21:35)
[2019-06-27] MEDS: SENNA/DOCUSATE TABLET PO SCH (07:44)
[2019-06-27] MEDS: HALOPERIDOL 5 MG/ML IM PRN (08:52)
--- NOTE | 2019-06-27 12:42 | NUR ---
REC: Finger foods with thin liquids; orange sheet updated Addendum: 06/27/19 at 1243 by Marilee DE JESUS Amended: Links added.
[2019-06-27 13:19] VITALS: BP 111/49
[2019-06-27] MEDS: QUETIAPINE 25MG TABLET PO PRN (13:45)
[2019-06-27 19:09] VITALS: BP 121/78
[2019-06-27] MEDS: MIRTAZAPINE 15 MG TAB.RAPDIS PO SCH (21:34)
[2019-06-27] MEDS: ATORVASTATIN 40 MG TABLET PO SCH (21:35)
[2019-06-27] MEDS: RISPERIDONE 0.5 MG TABLET PO SCH (21:35)
[2019-06-27] MEDS: MELATONIN 3 MG TABLET PO SCH (21:35)
[2019-06-27] MEDS: INSULIN GLARGINE 100 UNITS/ML, PEN SQ-INSULIN SCH (21:36)
[2019-06-28 01:26] VITALS: BP 142/83
[2019-06-28] MEDS: QUETIAPINE 25MG TABLET PO PRN (01:34)
[2019-06-28 07:12] VITALS: BP 123/76
[2019-06-28] MEDS: LEVOTHYROXINE 175 MCG TABLET PO SCH (08:18)
[2019-06-28] MEDS: ISOSORBIDE MONONITRATE 20 MG TABLET PO SCH ×2 (08:18→21:58)
[2019-06-28] MEDS: CARVEDILOL 6.25 MG TABLET PO SCH ×2 (08:19→21:59)
[2019-06-28] MEDS: SENNA/DOCUSATE TABLET PO SCH (08:19)
[2019-06-28] MEDS: SODIUM CHLORIDE FLUSH 10ML SYR IVF SCH ×2 (08:19→21:00)
[2019-06-28] MEDS: DIVALPROEX 125 MG CAP.SPRINK PO SCH ×2 (08:19→21:58)
[2019-06-28] MEDS: HALOPERIDOL 5 MG/ML IM PRN ×2 (08:20→14:21)
[2019-06-28] MEDS: INSULIN LISPRO 100 UNITS/ML, PEN SQ-INSULIN SCH ×4 (08:20→22:00)
[2019-06-28 13:29] VITALS: BP 132/80
[2019-06-28] MEDS: OXYcodone 5 MG/5 ML ORAL.SOL UDC PO PRN (14:47)
[2019-06-28 19:57] VITALS: BP 154/84
[2019-06-28] MEDS: ATORVASTATIN 40 MG TABLET PO SCH (21:59)
[2019-06-28] MEDS: RISPERIDONE 0.5 MG TABLET PO SCH (21:59)
[2019-06-28] MEDS: MELATONIN 3 MG TABLET PO SCH (21:59)
[2019-06-28] MEDS: MIRTAZAPINE 15 MG TAB.RAPDIS PO SCH (21:59)
[2019-06-28] MEDS: INSULIN GLARGINE 100 UNITS/ML, PEN SQ-INSULIN SCH (22:00)
[2019-06-29 01:01] VITALS: BP 114/68
[2019-06-29] MEDS: HALOPERIDOL 5 MG/ML IM PRN ×2 (02:47→09:11)
[2019-06-29 06:36] VITALS: BP 110/70
[2019-06-29] MEDS: SODIUM CHLORIDE FLUSH 10ML SYR IVF SCH ×2 (08:56→21:00)
[2019-06-29] MEDS: INSULIN LISPRO 100 UNITS/ML, PEN SQ-INSULIN SCH ×4 (09:12→21:19)
[2019-06-29] MEDS: INSULIN GLARGINE 100 UNITS/ML, PEN SQ-INSULIN SCH ×2 (09:13→09:22)
[2019-06-29] MEDS: DIVALPROEX 125 MG CAP.SPRINK PO SCH ×2 (09:15→20:44)
[2019-06-29] MEDS: ISOSORBIDE MONONITRATE 20 MG TABLET PO SCH ×2 (09:15→20:46)
[2019-06-29] MEDS: LEVOTHYROXINE 175 MCG TABLET PO SCH (09:16)
[2019-06-29] MEDS: CARVEDILOL 6.25 MG TABLET PO SCH ×2 (09:16→20:46)
[2019-06-29] MEDS: SENNA/DOCUSATE TABLET PO SCH (09:20)
[2019-06-29 14:23] VITALS: BP 123/70
[2019-06-29 19:11] VITALS: BP 119/75
[2019-06-29] MEDS: RISPERIDONE 0.5 MG TABLET PO SCH (20:41)
[2019-06-29] MEDS: MIRTAZAPINE 15 MG TAB.RAPDIS PO SCH (20:42)
[2019-06-29] MEDS: MELATONIN 3 MG TABLET PO SCH (20:43)
[2019-06-29] MEDS: ATORVASTATIN 40 MG TABLET PO SCH (20:47)
[2019-06-30] MEDS: POLYETHYLENE GLYCOL 17 GM PACKET PO PRN (00:46)
[2019-06-30] MEDS: QUETIAPINE 25MG TABLET PO PRN (01:22)
[2019-06-30 01:38] VITALS: BP 158/81
[2019-06-30 06:31] VITALS: BP 110/64
[2019-06-30] MEDS: INSULIN LISPRO 100 UNITS/ML, PEN SQ-INSULIN SCH ×4 (07:00→21:01)
[2019-06-30] MEDS: LEVOTHYROXINE 175 MCG TABLET PO SCH (07:19)
[2019-06-30] MEDS: HALOPERIDOL 5 MG/ML IM PRN ×2 (07:20→13:33)
[2019-06-30] MEDS: SODIUM CHLORIDE FLUSH 10ML SYR IVF SCH ×2 (07:25→21:00)
[2019-06-30] MEDS: DIVALPROEX 125 MG CAP.SPRINK PO SCH ×2 (09:46→21:03)
[2019-06-30] MEDS: CARVEDILOL 6.25 MG TABLET PO SCH ×2 (09:46→21:04)
[2019-06-30] MEDS: SENNA/DOCUSATE TABLET PO SCH (09:47)
[2019-06-30] MEDS: ISOSORBIDE MONONITRATE 20 MG TABLET PO SCH ×2 (09:47→21:03)
[2019-06-30] MEDS: INSULIN GLARGINE 100 UNITS/ML, PEN SQ-INSULIN SCH (10:28)
[2019-06-30 12:37] VITALS: BP 96/62
[2019-06-30] MEDS ORDERED: SODIUM CHLORIDE 0.9% 1,000 ML IV SCH (15:00)
[2019-06-30 16:11] LABS: MICROSCOPIC NOT IND
[2019-06-30] MEDS: HEPARIN 5,000 UNITS/ML, 1ML SQ SCH ×2 (16:28→21:02)
[2019-06-30 19:33] VITALS: BP 139/80
[2019-06-30] MEDS: MIRTAZAPINE 15 MG TAB.RAPDIS PO SCH (21:00)
[2019-06-30] MEDS: RISPERIDONE 0.5 MG TABLET PO SCH (21:02)
[2019-06-30] MEDS: MELATONIN 3 MG TABLET PO SCH (21:04)
[2019-06-30] MEDS: ATORVASTATIN 40 MG TABLET PO SCH (21:04)
[2019-07-01 01:05] VITALS: BP 158/66
[2019-07-01] MEDS: QUETIAPINE 25MG TABLET PO PRN ×2 (02:22→13:27)
[2019-07-01 06:42] VITALS: BP 113/56
[2019-07-01] MEDS: HEPARIN 5,000 UNITS/ML, 1ML SQ SCH ×3 (07:20→23:00)
[2019-07-01] MEDS: LEVOTHYROXINE 175 MCG TABLET PO SCH (07:20)
[2019-07-01] MEDS: INSULIN LISPRO 100 UNITS/ML, PEN SQ-INSULIN SCH ×4 (07:22→21:37)
[2019-07-01] MEDS: SODIUM CHLORIDE FLUSH 10ML SYR IVF SCH ×2 (09:00→21:00)
[2019-07-01] MEDS: ISOSORBIDE MONONITRATE 20 MG TABLET PO SCH ×2 (10:13→21:32)
[2019-07-01] MEDS: INSULIN GLARGINE 100 UNITS/ML, PEN SQ-INSULIN SCH (10:13)
[2019-07-01] MEDS: DIVALPROEX 125 MG CAP.SPRINK PO SCH ×2 (10:14→21:32)
[2019-07-01] MEDS: SENNA/DOCUSATE TABLET PO SCH (10:15)
[2019-07-01] MEDS: CARVEDILOL 6.25 MG TABLET PO SCH ×2 (10:15→21:00)
[2019-07-01 12:15] VITALS: BP 127/52
[2019-07-01 18:45] VITALS: BP 142/81
[2019-07-01] MEDS: MELATONIN 3 MG TABLET PO SCH (21:00)
[2019-07-01] MEDS: RISPERIDONE 0.5 MG TABLET PO SCH (21:32)
[2019-07-01] MEDS: ATORVASTATIN 40 MG TABLET PO SCH (21:32)
[2019-07-01] MEDS: MIRTAZAPINE 15 MG TAB.RAPDIS PO SCH (21:32)
[2019-07-02] MEDS: QUETIAPINE 25MG TABLET PO PRN (01:37)
[2019-07-02 01:49] VITALS: BP 158/78
[2019-07-02 06:48] VITALS: BP 117/71
[2019-07-02] MEDS: INSULIN LISPRO 100 UNITS/ML, PEN SQ-INSULIN SCH ×4 (07:00→19:29)
[2019-07-02] MEDS: ISOSORBIDE MONONITRATE 20 MG TABLET PO SCH ×2 (10:38→19:22)
[2019-07-02] MEDS: SODIUM CHLORIDE FLUSH 10ML SYR IVF SCH ×2 (10:39→19:25)
[2019-07-02] MEDS: CARVEDILOL 6.25 MG TABLET PO SCH ×2 (10:39→19:23)
[2019-07-02] MEDS: LEVOTHYROXINE 175 MCG TABLET PO SCH (10:39)
[2019-07-02] MEDS: HEPARIN 5,000 UNITS/ML, 1ML SQ SCH ×2 (10:39→18:16)
[2019-07-02] MEDS: DIVALPROEX 125 MG CAP.SPRINK PO SCH ×2 (10:40→19:23)
[2019-07-02] MEDS: SENNA/DOCUSATE TABLET PO SCH (10:40)
[2019-07-02] MEDS: INSULIN GLARGINE 100 UNITS/ML, PEN SQ-INSULIN SCH (10:59)
[2019-07-02 14:00] VITALS: BP 109/70
[2019-07-02 18:42] VITALS: BP 117/66
[2019-07-02] MEDS: RISPERIDONE 0.5 MG TABLET PO SCH (19:23)
[2019-07-02] MEDS: OXYcodone 5 MG/5 ML ORAL.SOL UDC PO PRN (19:24)
[2019-07-02] MEDS: MELATONIN 3 MG TABLET PO SCH (19:24)
[2019-07-02] MEDS: ATORVASTATIN 40 MG TABLET PO SCH (19:24)
[2019-07-02] MEDS: MIRTAZAPINE 15 MG TAB.RAPDIS PO SCH (19:24)
[2019-07-03] MEDS: HEPARIN 5,000 UNITS/ML, 1ML SQ SCH ×3 (01:13→20:17)
[2019-07-03] MEDS: ACETAMINOPHEN 325 MG TABLET PO PRN ×2 (01:13→10:16)
[2019-07-03 01:14] VITALS: BP 138/80
[2019-07-03 06:49] VITALS: BP 159/76
[2019-07-03] MEDS: DIVALPROEX 125 MG CAP.SPRINK PO SCH ×2 (07:18→20:17)
[2019-07-03] MEDS: INSULIN LISPRO 100 UNITS/ML, PEN SQ-INSULIN SCH ×4 (07:18→20:31)
[2019-07-03] MEDS: CARVEDILOL 6.25 MG TABLET PO SCH ×2 (07:18→20:19)
[2019-07-03] MEDS: LEVOTHYROXINE 175 MCG TABLET PO SCH (07:18)
[2019-07-03] MEDS: ISOSORBIDE MONONITRATE 20 MG TABLET PO SCH ×2 (07:18→20:19)
[2019-07-03] MEDS: POLYETHYLENE GLYCOL 17 GM PACKET PO PRN (07:19)
[2019-07-03] MEDS: SENNA/DOCUSATE TABLET PO SCH (07:19)
[2019-07-03] MEDS: SODIUM CHLORIDE FLUSH 10ML SYR IVF SCH ×2 (07:20→20:17)
[2019-07-03] MEDS: INSULIN GLARGINE 100 UNITS/ML, PEN SQ-INSULIN SCH (07:20)
[2019-07-03] MEDS: ONDANSETRON ODT 4 MG PO PRN (09:38)
[2019-07-03 13:19] VITALS: BP 117/69
[2019-07-03 18:30] VITALS: BP 105/69
[2019-07-03] MEDS: ATORVASTATIN 40 MG TABLET PO SCH (20:17)
[2019-07-03] MEDS: RISPERIDONE 0.5 MG TABLET PO SCH (20:18)
[2019-07-03] MEDS: MIRTAZAPINE 15 MG TAB.RAPDIS PO SCH (20:18)
[2019-07-03] MEDS: MELATONIN 3 MG TABLET PO SCH (20:19)
[2019-07-04 00:01] VITALS: BP 121/79
[2019-07-04] MEDS: HEPARIN 5,000 UNITS/ML, 1ML SQ SCH ×3 (04:35→20:52)
[2019-07-04 07:57] VITALS: BP 138/81
[2019-07-04] MEDS: SODIUM CHLORIDE FLUSH 10ML SYR IVF SCH ×2 (09:00→20:54)
[2019-07-04] MEDS ORDERED: INSULIN GLARGINE 100 UNITS/ML, PEN SQ-INSULIN SCH (09:00)
[2019-07-04] MEDS: INSULIN LISPRO 100 UNITS/ML, PEN SQ-INSULIN SCH ×4 (09:52→20:54)
[2019-07-04] MEDS: CARVEDILOL 6.25 MG TABLET PO SCH ×2 (09:53→20:53)
[2019-07-04] MEDS: DIVALPROEX 125 MG CAP.SPRINK PO SCH ×2 (09:53→20:53)
[2019-07-04] MEDS: ISOSORBIDE MONONITRATE 20 MG TABLET PO SCH ×2 (09:54→20:53)
[2019-07-04] MEDS: POLYETHYLENE GLYCOL 17 GM PACKET PO PRN (09:54)
[2019-07-04] MEDS: SENNA/DOCUSATE TABLET PO SCH (09:54)
[2019-07-04] MEDS: LEVOTHYROXINE 175 MCG TABLET PO SCH (09:54)
[2019-07-04 12:34] VITALS: BP 106/66
[2019-07-04] MEDS: ACETAMINOPHEN 325 MG TABLET PO PRN (16:37)
[2019-07-04 18:39] VITALS: BP 102/66
[2019-07-04] MEDS: MIRTAZAPINE 15 MG TAB.RAPDIS PO SCH (20:53)
[2019-07-04] MEDS: ATORVASTATIN 40 MG TABLET PO SCH (20:53)
[2019-07-04] MEDS: MELATONIN 3 MG TABLET PO SCH (20:53)
[2019-07-04] MEDS: RISPERIDONE 0.5 MG TABLET PO SCH (20:54)
[2019-07-05] MEDS: HEPARIN 5,000 UNITS/ML, 1ML SQ SCH ×3 (05:04→21:55)
[2019-07-05 07:00] VITALS: BP 129/71
[2019-07-05] MEDS: SODIUM CHLORIDE FLUSH 10ML SYR IVF SCH ×2 (09:00→21:00)
[2019-07-05] MEDS: INSULIN GLARGINE 100 UNITS/ML, PEN SQ-INSULIN SCH (09:17)
[2019-07-05] MEDS: INSULIN LISPRO 100 UNITS/ML, PEN SQ-INSULIN SCH ×4 (09:17→21:56)
[2019-07-05] MEDS: LEVOTHYROXINE 175 MCG TABLET PO SCH (09:44)
[2019-07-05] MEDS: CARVEDILOL 6.25 MG TABLET PO SCH ×2 (09:44→21:53)
[2019-07-05] MEDS: DIVALPROEX 125 MG CAP.SPRINK PO SCH ×2 (09:48→21:55)
[2019-07-05] MEDS: SENNA/DOCUSATE TABLET PO SCH (09:48)
[2019-07-05] MEDS: ISOSORBIDE MONONITRATE 20 MG TABLET PO SCH ×2 (09:48→21:53)
[2019-07-05 14:01] VITALS: BP 133/74
[2019-07-05 18:57] VITALS: BP 132/82
[2019-07-05] MEDS: MELATONIN 3 MG TABLET PO SCH (21:53)
[2019-07-05] MEDS: RISPERIDONE 0.5 MG TABLET PO SCH (21:54)
[2019-07-05] MEDS: MIRTAZAPINE 15 MG TAB.RAPDIS PO SCH (21:54)
[2019-07-05] MEDS: ATORVASTATIN 40 MG TABLET PO SCH (21:55)
[2019-07-06 01:00] VITALS: BP 151/78
[2019-07-06] MEDS: HEPARIN 5,000 UNITS/ML, 1ML SQ SCH ×3 (05:03→20:35)
[2019-07-06 06:59] VITALS: BP 151/64
[2019-07-06] MEDS: INSULIN LISPRO 100 UNITS/ML, PEN SQ-INSULIN SCH ×4 (07:00→20:37)
[2019-07-06] MEDS: DIVALPROEX 125 MG CAP.SPRINK PO SCH ×2 (09:06→20:35)
[2019-07-06] MEDS: CARVEDILOL 6.25 MG TABLET PO SCH ×2 (09:07→20:35)
[2019-07-06] MEDS: SENNA/DOCUSATE TABLET PO SCH (09:07)
[2019-07-06] MEDS: ISOSORBIDE MONONITRATE 20 MG TABLET PO SCH ×2 (09:07→20:36)
[2019-07-06] MEDS: LEVOTHYROXINE 175 MCG TABLET PO SCH (09:07)
[2019-07-06] MEDS: INSULIN GLARGINE 100 UNITS/ML, PEN SQ-INSULIN SCH (09:08)
[2019-07-06] MEDS: SODIUM CHLORIDE FLUSH 10ML SYR IVF SCH ×2 (09:08→20:35)
[2019-07-06] MEDS: HALOPERIDOL 5 MG/ML IM PRN ×3 (09:19→18:04)
[2019-07-06 13:44] VITALS: BP 150/82
[2019-07-06 19:00] VITALS: BP 153/76
[2019-07-06] MEDS: ATORVASTATIN 40 MG TABLET PO SCH (20:35)
[2019-07-06] MEDS: RISPERIDONE 0.5 MG TABLET PO SCH (20:35)
[2019-07-06] MEDS: MELATONIN 3 MG TABLET PO SCH (20:36)
[2019-07-06] MEDS: MIRTAZAPINE 15 MG TAB.RAPDIS PO SCH (20:36)
[2019-07-07 01:22] VITALS: BP 169/86
[2019-07-07] MEDS: HEPARIN 5,000 UNITS/ML, 1ML SQ SCH ×3 (05:00→21:32)
[2019-07-07] MEDS: INSULIN LISPRO 100 UNITS/ML, PEN SQ-INSULIN SCH ×4 (07:38→21:40)
[2019-07-07 07:45] VITALS: BP 17/75
[2019-07-07] MEDS: INSULIN GLARGINE 100 UNITS/ML, PEN SQ-INSULIN SCH (08:04)
[2019-07-07] MEDS: ISOSORBIDE MONONITRATE 20 MG TABLET PO SCH ×2 (08:05→21:29)
[2019-07-07] MEDS: SENNA/DOCUSATE TABLET PO SCH (08:05)
[2019-07-07] MEDS: DIVALPROEX 125 MG CAP.SPRINK PO SCH ×2 (08:06→21:22)
[2019-07-07] MEDS: LEVOTHYROXINE 175 MCG TABLET PO SCH (08:07)
[2019-07-07] MEDS: CARVEDILOL 6.25 MG TABLET PO SCH ×2 (08:07→21:23)
[2019-07-07] MEDS: SODIUM CHLORIDE FLUSH 10ML SYR IVF SCH ×2 (08:08→21:00)
[2019-07-07 12:34] VITALS: BP 117/86
[2019-07-07] MEDS ORDERED: LACTULOSE 20 GM/30 ML UDC PO PRN (15:30)
[2019-07-07 19:02] VITALS: BP 126/57
[2019-07-07] MEDS: MIRTAZAPINE 15 MG TAB.RAPDIS PO SCH (21:22)
[2019-07-07] MEDS: RISPERIDONE 0.5 MG TABLET PO SCH (21:23)
[2019-07-07] MEDS: MELATONIN 3 MG TABLET PO SCH (21:23)
[2019-07-07] MEDS: ATORVASTATIN 40 MG TABLET PO SCH (21:25)
[2019-07-08 01:33] VITALS: BP 155/88
[2019-07-08 04:48] LABS: BASOPHILS # (AUTO) 0.06 x10^3/uL (0-0.1); BASOPHILS % (AUTO) 1 % (0-1); EOSINOPHILS # (AUTO) 0.24 x10^3/uL (0-0.4); EOSINOPHILS % (AUTO) 2 % (1-7); LYMPHOCYTES # (AUTO) 3.36 x10^3/uL (1-3.4); LYMPHOCYTES % (AUTO) 32 % (22-44); MD NO; MEAN CORPUSCULAR HEMOGLOBIN 30.6 pg (27.0-34.8); MEAN CORPUSCULAR HGB CONC 32.3 g/dL (32.4-35.8); MEAN CORPUSCULAR VOLUME 94.8 fL (80-100); MEAN PLATELET VOLUME 11.4 fL (7.4-10.4); MONOCYTES # (AUTO) 1.31 x10^3/uL (0.2-0.8); MONOCYTES % (AUTO) 12 % (2-9); NEUTROPHILS # (AUTO) 5.65 x10^3/uL (1.8-6.8); NEUTROPHILS % (AUTO) 53 % (42-75); PLATELET COUNT 160 x10^3/uL (130-400); RED BLOOD COUNT 5.72 x10^6/uL (3.82-5.3); RED CELL DISTRIBUTION WIDTH 15.4 % (9.6-15.2)
[2019-07-08 04:59] LABS: ANION GAP 7 mmol/L (5-15); CALCIUM 10.1 mg/dL (8.5-10.1); CHLORIDE 111 mmol/L (98-107)
[2019-07-08 05:00] LABS: CREATININE 1.49 mg/dL (0.55-1.02)
[2019-07-08] MEDS: HEPARIN 5,000 UNITS/ML, 1ML SQ SCH ×3 (05:13→22:42)
[2019-07-08 06:58] VITALS: BP 162/69
[2019-07-08] MEDS: INSULIN LISPRO 100 UNITS/ML, PEN SQ-INSULIN SCH ×4 (07:30→22:42)
[2019-07-08] MEDS: SODIUM CHLORIDE FLUSH 10ML SYR IVF SCH ×2 (09:00→20:24)
[2019-07-08] MEDS: SENNA/DOCUSATE TABLET PO SCH (09:48)
[2019-07-08] MEDS: ISOSORBIDE MONONITRATE 20 MG TABLET PO SCH ×2 (09:48→20:24)
[2019-07-08] MEDS: CARVEDILOL 6.25 MG TABLET PO SCH ×2 (09:49→20:25)
[2019-07-08] MEDS: DIVALPROEX 125 MG CAP.SPRINK PO SCH ×2 (09:49→20:25)
[2019-07-08] MEDS: INSULIN GLARGINE 100 UNITS/ML, PEN SQ-INSULIN SCH (09:50)
[2019-07-08] MEDS: LEVOTHYROXINE 175 MCG TABLET PO SCH (09:50)
[2019-07-08 13:29] VITALS: BP 159/87
[2019-07-08] MEDS: HALOPERIDOL 5 MG/ML IM PRN (15:56)
[2019-07-08 19:19] VITALS: BP 125/71
[2019-07-08] MEDS: RISPERIDONE 0.5 MG TABLET PO SCH (20:24)
[2019-07-08] MEDS: MELATONIN 3 MG TABLET PO SCH (20:25)
[2019-07-08] MEDS: ATORVASTATIN 40 MG TABLET PO SCH (20:25)
[2019-07-08] MEDS: MIRTAZAPINE 15 MG TAB.RAPDIS PO SCH (20:25)
[2019-07-09 00:42] VITALS: BP 136/71
[2019-07-09] MEDS: HEPARIN 5,000 UNITS/ML, 1ML SQ SCH ×3 (06:30→22:00)
[2019-07-09] MEDS: LEVOTHYROXINE 175 MCG TABLET PO SCH (06:31)
[2019-07-09] MEDS: INSULIN LISPRO 100 UNITS/ML, PEN SQ-INSULIN SCH ×4 (07:34→20:33)
[2019-07-09] MEDS: INSULIN GLARGINE 100 UNITS/ML, PEN SQ-INSULIN SCH (07:36)
[2019-07-09] MEDS: ISOSORBIDE MONONITRATE 20 MG TABLET PO SCH ×2 (07:37→20:25)
[2019-07-09] MEDS: SENNA/DOCUSATE TABLET PO SCH (07:37)
[2019-07-09] MEDS: QUETIAPINE 25MG TABLET PO PRN ×2 (07:38→20:20)
[2019-07-09] MEDS: CARVEDILOL 6.25 MG TABLET PO SCH ×2 (07:38→20:22)
[2019-07-09] MEDS: DIVALPROEX 125 MG CAP.SPRINK PO SCH ×2 (07:38→20:21)
[2019-07-09] MEDS: SODIUM CHLORIDE FLUSH 10ML SYR IVF SCH ×2 (07:39→20:18)
[2019-07-09 07:47] VITALS: BP_SYST 125; BP_SYST 94; BP_DIAS 60; BP_DIAS 77
[2019-07-09 12:12] VITALS: BP 116/60
[2019-07-09 19:05] VITALS: BP 139/82
[2019-07-09] MEDS: RISPERIDONE 0.5 MG TABLET PO SCH (20:19)
[2019-07-09] MEDS: MELATONIN 3 MG TABLET PO SCH (20:19)
[2019-07-09] MEDS: ATORVASTATIN 40 MG TABLET PO SCH (20:22)
[2019-07-09] MEDS: MIRTAZAPINE 15 MG TAB.RAPDIS PO SCH (20:24)
[2019-07-10 00:18] VITALS: BP 117/69
[2019-07-10] MEDS: HEPARIN 5,000 UNITS/ML, 1ML SQ SCH ×2 (04:38→11:49)
[2019-07-10 06:43] VITALS: BP 144/78
[2019-07-10] MEDS: INSULIN LISPRO 100 UNITS/ML, PEN SQ-INSULIN SCH ×2 (07:00→11:52)
[2019-07-10] MEDS: SENNA/DOCUSATE TABLET PO SCH (09:00)
[2019-07-10] MEDS: SODIUM CHLORIDE FLUSH 10ML SYR IVF SCH (09:00)
[2019-07-10] MEDS: ISOSORBIDE MONONITRATE 20 MG TABLET PO SCH (09:04)
[2019-07-10] MEDS: INSULIN GLARGINE 100 UNITS/ML, PEN SQ-INSULIN SCH (09:04)
[2019-07-10] MEDS: DIVALPROEX 125 MG CAP.SPRINK PO SCH (09:05)
[2019-07-10] MEDS: CARVEDILOL 6.25 MG TABLET PO SCH (09:05)
[2019-07-10] MEDS: LEVOTHYROXINE 175 MCG TABLET PO SCH (09:06)
[2019-07-10 10:33] LABS: CHLORIDE 112 mmol/L (98-107)
[2019-07-10 10:44] LABS: ALANINE AMINOTRANSFERASE 24 U/L (12-78); ALBUMIN 3.2 g/dL (3.4-5.0); ALKALINE PHOSPHATASE 100 U/L (45-117); ANION GAP 5 mmol/L (5-15); BILIRUBIN,TOTAL 0.8 mg/dL (0.2-1.0); CALCIUM 10.1 mg/dL (8.5-10.1); TOTAL PROTEIN 6.9 g/dL (6.4-8.2)
== END 2019-07-10 13:21 | DRG 853 ==
LOC: ED 16:11 → EDIP 16:27 → 3N 17:45 → 4NW 06-17 17:52
PROVIDERS: ADMIT Internal Medicine; ATTEND Internal Medicine
PROC: 0T9B70Z Drainage of Bladder with Drainage Device, Via Natural or Artificial Opening (ICD-10-PCS; 2019-06-13)
PROC: 0UDB7ZZ Extraction of Endometrium, Via Natural or Artificial Opening (ICD-10-PCS; principal; 2019-06-14 13:30)
DX: A41.9 Sepsis, unspecified organism (principal); G93.41 Metabolic encephalopathy; N17.0 Acute kidney failure with tubular necrosis; Z68.41 Body mass index [BMI] 40.0-44.9, adult; E66.2 Morbid (severe) obesity with alveolar hypoventilation; N18.4 Chronic kidney disease, stage 4 (severe); I50.22 Chronic systolic (congestive) heart failure; I13.0 Hypertensive heart and chronic kidney disease with heart failure and stage 1 through stage 4 chronic kidney disease, or unspecified chronic kidney disease; F02.81 Dementia in other diseases classified elsewhere, unspecified severity, with behavioral disturbance; I16.0 Hypertensive urgency; B95.2 Enterococcus as the cause of diseases classified elsewhere; B96.20 Unspecified Escherichia coli [E. coli] as the cause of diseases classified elsewhere; D75.1 Secondary polycythemia; E03.9 Hypothyroidism, unspecified; E11.22 Type 2 diabetes mellitus with diabetic chronic kidney disease; E11.51 Type 2 diabetes mellitus with diabetic peripheral angiopathy without gangrene; E78.5 Hyperlipidemia, unspecified; N93.9 Abnormal uterine and vaginal bleeding, unspecified; E86.0 Dehydration; C54.1 Malignant neoplasm of endometrium; Z51.5 Encounter for palliative care; R13.10 Dysphagia, unspecified; K59.00 Constipation, unspecified; N30.90 Cystitis, unspecified without hematuria; I25.2 Old myocardial infarction; I25.10 Atherosclerotic heart disease of native coronary artery without angina pectoris; G30.1 Alzheimer's disease with late onset; Z90.710 Acquired absence of both cervix and uterus; Z87.440 Personal history of urinary (tract) infections; Z86.73 Personal history of transient ischemic attack (TIA), and cerebral infarction without residual deficits; Z85.42 Personal history of malignant neoplasm of other parts of uterus; Z79.4 Long term (current) use of insulin; Z78.0 Asymptomatic menopausal state; E11.319 Type 2 diabetes mellitus with unspecified diabetic retinopathy without macular edema; F17.210 Nicotine dependence, cigarettes, uncomplicated; N95.0 Postmenopausal bleeding; R09.02 Hypoxemia
CPT/HCPCS: 36415; 36600; 71045; 74177; 74230; 76830; 80048; 80053; 81001; 81003; 82550; 82803; 82962; 83036; 83540; 83550; 83735; 83880; 84100; 84145; 84439; 84443; 85014; 85018; 85025; 87040; 87077; 87086; 87186; 88305; 93005; 96365; 96375; C8929; G0378; J0696; J1644; J2250; J2704; J3010; Q0162; Q9957; Q9967; J0360; J1630; J1815; J2060; J2370; J2590; J7030